=== PATIENT | female | born 1960 | race Caucasian/White ===

== ENCOUNTER 2023-03-15 07:06 | Day surgery (SDC) | payer BC, SELFPAY ==
[2023-03-15 12:56] VITALS: BP 124/70
[2023-03-15 15:30] VITALS: BP 94/68
[2023-03-15 15:45] VITALS: BP 90/78
[2023-03-15 16:00] VITALS: BP 94/63
== END 2023-03-15 16:25 | disposition home or self-care (01) ==
LOC: GI 07:06
PROVIDERS: ATTENDING PHYSICIAN Internal Medicine Gastroenterology
DX: Z12.11 Encounter for screening for malignant neoplasm of colon (principal); K64.0 First degree hemorrhoids; K57.30 Diverticulosis of large intestine without perforation or abscess without bleeding; K63.89 Other specified diseases of intestine; R93.89 Abnormal findings on diagnostic imaging of other specified body structures; K86.2 Cyst of pancreas; K80.20 Calculus of gallbladder without cholecystitis without obstruction; K63.5 Polyp of colon; Z86.010 Personal history of colon polyps
CPT/HCPCS: 45390; 45380; 43238; 88173; 88305

== ENCOUNTER → 2023-05-09 14:49 | Outpatient (REF) | payer BC, SELFPAY | LOC: WDC 14:49 | PROVIDERS: ATTENDING PHYSICIAN Obstetrics & Gynecology Gynecology; FAMILY PHYSICIAN Student in an Organized Health Care Education/Training Program | DX: Z12.31 Encounter for screening mammogram for malignant neoplasm of breast (principal) | CPT/HCPCS: 77063; 77067 ==

== ENCOUNTER → 2024-05-14 14:14 | Outpatient (REF) | payer BC, SELFPAY | LOC: WDC 14:14 | PROVIDERS: ATTENDING PHYSICIAN Obstetrics & Gynecology Gynecology; FAMILY PHYSICIAN Student in an Organized Health Care Education/Training Program | DX: Z12.31 Encounter for screening mammogram for malignant neoplasm of breast (principal) | CPT/HCPCS: 77063; 77067 ==

== ENCOUNTER → 2024-06-11 07:07 | Outpatient (REF) | payer BC, SELFPAY | LOC: PAVMRI 07:07 | PROVIDERS: ATTENDING PHYSICIAN Student in an Organized Health Care Education/Training Program | DX: G43.109 Migraine with aura, not intractable, without status migrainosus (principal); H43.391 Other vitreous opacities, right eye; R42 Dizziness and giddiness | CPT/HCPCS: 70551 ==

== ENCOUNTER → 2024-06-30 07:37 | Outpatient (REF) | payer BC, SELFPAY | LOC: PAVMRI 07:37 | PROVIDERS: ATTENDING PHYSICIAN Physician Assistant; FAMILY PHYSICIAN Student in an Organized Health Care Education/Training Program | DX: K86.2 Cyst of pancreas (principal) | CPT/HCPCS: 74183; A9575 ==